=== PATIENT | female | born 1980 | race Caucasian/White ===

== ENCOUNTER 2019-11-24 07:34 | Day surgery (SDC) | payer OTHER ==
[~2019-11-24 07:34] MED LIST: ACET500T68 PO; BUPIVACAINE-EPI 0.25%-1:200000 MPF 30 ML VIAL. INJ ONE; EREN70AU2 SQ; FERR-36 PO; HYDROmorphone 2 MG/ML VIAL IV PRN; IBUP-1027 PO; LEVO25TA4 PO; LIDOCAINE 1% PF 2 ML VIAL. ID PRN; LORA-434 PO; LORA10TA68 PO; MORPHINE SULFATE 2 MG/ML VIAL. IV PRN; ONDANSETRON PF 4 MG/2 ML VIAL. IV PRN; PROC10TA57 PO; TIZA4TAB2 PO; ZOLP10TA PO; fentaNYL PF VIAL 100 MCG/2 ML VIAL IV PRN
[2019-11-24] MEDS: IV RINGERS,LACTATED 1000ML 1,000 ML IV SCH ×2 (08:19→12:04)
[2019-11-24] MEDS ORDERED: MIDAZOLAM HCL/PF 2 MG/2 ML VIAL. ONE (09:00)
[2019-11-24] MEDS ORDERED: LIDOCAINE 2% PF 5 ML VIAL. ONE (09:00)
[2019-11-24] MEDS ORDERED: fentaNYL PF VIAL 100 MCG/2 ML VIAL ONE ×2 (09:00→11:58)
[2019-11-24] MEDS ORDERED: PROPOFOL 10 MG/ML (20ML) VIAL. IV ONE (09:00)
[2019-11-24] MEDS ORDERED: DEXAMETHASONE SOD PHOS 4 MG/ML VIAL ONE ×2 (09:00→10:44)
[2019-11-24] MEDS ORDERED: ROCURONIUM 50 MG/5 ML VIAL. ONE (09:00)
[2019-11-24] MEDS ORDERED: ONDANSETRON PF 4 MG/2 ML VIAL. ONE (09:00)
[2019-11-24] MEDS ORDERED: SUCCINYLCHOLINE 200 MG/10 ML VIAL. ONE (09:00)
[2019-11-24] MEDS ORDERED: FAMOTIDINE 20 MG/2 ML VIAL ONE (09:00)
[2019-11-24] MEDS ORDERED: SCOPOLAMINE 1.5MG PATCH. TD SCH (09:30)
[2019-11-24] MEDS ORDERED: SURGICEL HEMOSTAT 4X8 EACH. ONE (10:29)
[2019-11-24] MEDS ORDERED: diphenhydrAMINE 50 MG/ML VIAL ONE (10:44)
[2019-11-24] MEDS ORDERED: KETOROLAC 30 MG/ML VIAL. ONE (11:05)
[2019-11-24] MEDS ORDERED: NEOSTIGMINE METHYLSULFATE 5 MG/5 ML SYRINGE. ONE (11:06)
[2019-11-24] MEDS ORDERED: GLYCOPYRROLATE 1 MG/5 ML VIAL. ONE (11:06)
[2019-11-24] MEDS ORDERED: SEVOFLURANE 61 TO 120 MINUTES. IH ONE (11:47)
[2019-11-24] MEDS ORDERED: SEVOFLURANE 31 TO 60 MINUTES. IH ONE (11:48)
--- NOTE | 2019-11-24 11:52 | PDOC ---
BRIEF OPERATIVE NOTE Date: Nov 24, 2019 Pre-Op Diagnosis Sterilization Post-Op Diagnosis SAme Procedure Performed LPSC BTL and Lysis of adhesions Surgeon Dr. Davis Piano Regulator Inspector Telecom Specialist: Jonel Anesthesia Type: General Blood Loss 5 ml Specimens Obtained stacey. fallopian tubes and foreign body 1 cm stone Findings nml size uterus, nml fallopian tubes and ovaries stacey., adhesions of uterus to abd wall and omentum to abd wall, foreign body 1 cm stone Complications none Operative Note see dictation JEAN CLAUDE DAVIS Jr, MD Nov 24, 2019 11:52
--- NOTE | 2019-11-24 11:54 | DISCH ---
DISCHARGE INSTRUCTIONS Condition on Discharge Condition on Discharge: Stable Activity After Discharge Activity Instructions for Disc: Activity as tolerated Lifting Instructions after Dis: No heavy lifting Driving Instructions after Dis: Do not drive today Diet after Discharge Diet after Discharge: Regular Contacting the DRGelacio after DC Call your doctor for: Concerns you may have Follow-Up Follow up with: Dr. Davis in 1 week JEAN CLAUDE DAVIS Jr, MD Nov 24, 2019 11:54
[2019-11-24] MEDS: fentaNYL PF VIAL 100 MCG/2 ML VIAL IV PRN ×2 (12:05→13:23)
--- NOTE | 2019-11-24 12:05 | OP ---
DATE OF SURGERY: PREOPERATIVE DIAGNOSIS: Sterilization. POSTOPERATIVE DIAGNOSIS: Sterilization. PROCEDURE: Laparoscopic bilateral tubal ligation via bilateral salpingectomy and lysis of adhesions. SURGEON: Jean Claude Davis MD. UNDERWATER PHOTOGRAPHER: Jonel. ANESTHESIA: GETA. ESTIMATED BLOOD LOSS: 5 mL. COMPLICATIONS: None. FINDINGS: Normal size uterus, normal fallopian tubes and ovaries bilaterally, adhesions of the uterus to abdominal wall as well as the omentum to abdominal wall, foreign body of 1 cm stone. SUMMARY: A 39-year-old female who desired permanent sterilization. She was counseled on risks, benefits and expectations as well as failure rate and voiced clear understanding to proceed. DESCRIPTION OF PROCEDURE: The patient was taken to surgery suite and placed in dorsal lithotomy position. She was prepped with Betadine solution for vaginal prep and ChloraPrep for abdominal prep. After adequate anesthesia, bivalve speculum was placed vaginally and anterior lip of the cervix was grasped with single tooth tenaculum. The uterine acorn manipulator was then placed. The bivalve speculum was removed. Attention was now placed on abdomen. Small transverse skin incision was made just below the umbilicus with a scalpel. The Veress needle was then placed through the infraumbilical incision site. The abdomen was allowed to insufflate up to 1-1/2 liters CO2 gas. The Veress needle was then removed, 5 mm trocar was placed, the scope was positioned. There were multiple abdominal wall adhesions of the omentum as well as the anterior wall of the uterus and fundus of the uterus. The fallopian tubes and ovaries appeared normal bilaterally. Two additional incisions made in the left lower quadrant of 5 mm port and 8 mm port. With aid of the [place] retractors and EnSeal device, the left fallopian tube was coagulated and dissected and removed from the left adnexa. The same process took place with the right fallopian tube. The areas were hemostatic. There was a 1 cm foreign body stone that was in the area of the bladder that was free floating and not attached to any organ or pelvic sidewall. An 8 mm port was replaced with a 10 mm port in which the Endobag was positioned and the foreign body stone was removed. Due to dense adhesions of the uterus to the abdominal wall and omentum, these were removed with the aid of the EnSeal device. Suction irrigation was utilized to verify good hemostasis. A small amount of normal saline was left in posterior cul-de-sac. The trocars were then removed under direct visualization. The abdomen was allowed to deflate as much as possible along with mechanical manipulation. The 10 mm port was closed at the fascia level using 2-0 Vicryl suture in a [id number] manner. The 3 skin incisions were closed at the skin level using 4-0 Vicryl suture in subcuticular manner. A 0.25% Marcaine with epinephrine was injected at each incision site. Uterine acorn manipulator and single tooth tenaculum were removed. The patient tolerated the procedure well and was taken to recovery room in stable condition. Sponge and needle count correct x 3. JEAN CLAUDE DAVIS MD DR: KYARA/rhonda JOB#: [id number] / [id number]
[2019-11-24] MEDS ORDERED: PROCHLORPERAZINE 10 MG/2 ML VIAL. ONE (12:13)
[2019-11-24] MEDS: PROCHLORPERAZINE 10 MG/2 ML VIAL. IV PRN ×2 (12:16→13:23)
[2019-11-24] MEDS ORDERED: OXYC-325 PO (12:37)
[2019-11-24] MEDS ORDERED: oxyCODONE/APAP 5/325 1 TAB TABLET PO ONE ×2 (12:45)
[2019-11-24 13:20] VITALS: BP 115/74
== END 2019-11-24 14:09 | disposition home or self-care (01) ==
LOC: SURG 07:34
PROVIDERS: ATTEND Obstetrics & Gynecology
DX: Z30.2 Encounter for sterilization (principal); T18.2XXA Foreign body in stomach, initial encounter; K66.0 Peritoneal adhesions (postprocedural) (postinfection); Z20.828 Contact with and (suspected) exposure to other viral communicable diseases; X58.XXXA Exposure to other specified factors, initial encounter; Y93.89 Activity, other specified; Y92.89 Other specified places as the place of occurrence of the external cause; Y99.8 Other external cause status; Z88.8 Allergy status to other drugs, medicaments and biological substances; Z87.891 Personal history of nicotine dependence; Z79.899 Other long term (current) drug therapy
CPT/HCPCS: 81025; 87426; A7015; J0330; J0780; J1100; J1200; J1885; J2250; J2405; J2704; J2710; J3010; J3490; J7030; J7120; C9803-CS; U0003-CS

== ENCOUNTER 2020-07-26 07:38 | Day surgery (SDC) | payer OTHER ==
[~2020-07-26] VITALS: Ht 162.6 cm; Wt 89.0 kg
[~2020-07-26 07:38] MED LIST changes: -BUPIVACAINE-EPI 0.25%-1:200000 MPF 30 ML VIAL. INJ ONE; -HYDROmorphone 2 MG/ML VIAL IV PRN; +HYDROmorphone 2 MG/ML VIAL IVP PRN; +IV RINGERS,LACTATED 1000ML 1,000 ML IV SCH; -LIDOCAINE 1% PF 2 ML VIAL. ID PRN; -MORPHINE SULFATE 2 MG/ML VIAL. IV PRN; +MORPHINE SULFATE 2 MG/ML VIAL. IVP PRN; -ONDANSETRON PF 4 MG/2 ML VIAL. IV PRN; +OXYC-325 PO; +PROCHLORPERAZINE 10 MG/2 ML VIAL. IVP PRN; -fentaNYL PF VIAL 100 MCG/2 ML VIAL IV PRN; +fentaNYL PF VIAL 100 MCG/2 ML VIAL IVP PRN
[2020-07-26 08:12] VITALS: BP 117/74
[2020-07-26] MEDS ORDERED: SCOPOLAMINE 1.5MG PATCH. TD ONE (08:30)
[2020-07-26] MEDS ORDERED: fentaNYL PF VIAL 100 MCG/2 ML VIAL ONE ×2 (09:05→10:03)
[2020-07-26] MEDS ORDERED: KETOROLAC 30 MG/ML VIAL. ONE (09:06)
[2020-07-26] MEDS ORDERED: LIDOCAINE 2% PF 5 ML VIAL. ONE (09:06)
[2020-07-26] MEDS ORDERED: PROPOFOL 10 MG/ML (20ML) VIAL. IV ONE (09:06)
[2020-07-26] MEDS ORDERED: FAMOTIDINE 20 MG/2 ML VIAL ONE (09:06)
[2020-07-26] MEDS ORDERED: ONDANSETRON PF 4 MG/2 ML VIAL. ONE (09:06)
[2020-07-26] MEDS ORDERED: SEVOFLURANE 16 TO 30 MINUTES. IH ONE (09:06)
[2020-07-26] MEDS ORDERED: SUCCINYLCHOLINE 200 MG/10 ML VIAL. ONE (09:06)
[2020-07-26] MEDS ORDERED: DEXAMETHASONE SOD PHOS 4 MG/ML VIAL ONE (09:24)
--- NOTE | 2020-07-26 09:43 | PDOC ---
BRIEF OPERATIVE NOTE Date: Jul 26, 2020 Pre-Op Diagnosis Menorrhagia Post-Op Diagnosis Same Procedure Performed Endometrial Ablation Surgeon Dr. Davis Anesthesia Type: General Blood Loss 5 ml Specimens Obtained none Findings enlarged uterus Complications none Operative Note see dictation JEAN CLAUDE DAVIS Jr, MD Jul 26, 2020 09:43
--- NOTE | 2020-07-26 09:44 | DISCH ---
DISCHARGE INSTRUCTIONS Condition on Discharge Condition on Discharge: Stable Activity After Discharge Activity Instructions for Disc: Activity as tolerated Lifting Instructions after Dis: No heavy lifting Driving Instructions after Dis: Do not drive today Diet after Discharge Diet after Discharge: Regular Contacting the DRGelacio after DC Call your doctor for: Concerns you may have Follow-Up Follow up with: Dr. Davis in 1 week JEAN CLAUDE DAVIS Jr, MD Jul 26, 2020 09:44
[2020-07-26] MEDS ORDERED: PROCHLORPERAZINE 10 MG/2 ML VIAL. ONE (09:57)
--- NOTE | 2020-07-26 10:04 | OP ---
DATE OF SURGERY: 07/26/2020 PREOPERATIVE DIAGNOSIS: Menorrhagia. POSTOPERATIVE DIAGNOSIS: Menorrhagia. PROCEDURE: Endometrial ablation. SURGEON: Forrest Davis MD ANESTHESIA: GETA. ESTIMATED BLOOD LOSS: 5 mL COMPLICATIONS: None. FINDINGS: Enlarged uterus. SUMMARY: A 40-year-old female with long history of menorrhagia, requiring endometrial ablation. She was counseled on the risks, benefits and expectations and voiced clear understanding to proceed. DESCRIPTION OF PROCEDURE: The patient was taken to the surgery suite and placed in dorsal lithotomy position. She was prepped with Betadine solution and draped in a sterile fashion. After adequate anesthesia, weighted speculum and curved Mia were placed vaginally. Anterior lip of cervix grasped with single tooth tenaculum. Uterus was sounded to 12 cm in length. The NovaSure device was set at 6.5+ cm for length and 3 cm for width. The NovaSure device went through a full cycle for 90-second interval. The NovaSure device was then removed. Single tooth tenaculum and weighted speculum were removed. The patient was taken to the PACU in stable condition. Sponge and instrument count correct x 3. KYARA/ALONSO DR: Abelino TID: [id number]
[2020-07-26] MEDS ORDERED: IBUP-1060 PO (10:08)
[2020-07-26] MEDS ORDERED: IBUPROFEN 400 MG TABLET. PO ONE (10:15)
[2020-07-26 10:40] VITALS: BP 120/68
== END 2020-07-26 11:00 | disposition home or self-care (01) ==
LOC: SURG 07:38
PROVIDERS: ATTEND Obstetrics & Gynecology
DX: N92.0 Excessive and frequent menstruation with regular cycle (principal); N85.2 Hypertrophy of uterus; E11.9 Type 2 diabetes mellitus without complications; E03.9 Hypothyroidism, unspecified; F41.9 Anxiety disorder, unspecified; F32.9 Major depressive disorder, single episode, unspecified; Z90.49 Acquired absence of other specified parts of digestive tract; Z98.51 Tubal ligation status; Z98.890 Other specified postprocedural states; Z79.899 Other long term (current) drug therapy; Z87.891 Personal history of nicotine dependence; Z88.8 Allergy status to other drugs, medicaments and biological substances
CPT/HCPCS: 58353; 81025; A4930; J0330; J0690; J0780; J1100; J1885; J2405; J2704; J3010; J3490

== ENCOUNTER 2021-01-14 11:06 | Day surgery (SDC) | payer OTHER ==
[~2021-01-14] VITALS: Ht 160 cm; Wt 89.0 kg
[~2021-01-14 11:06] MED LIST changes: +IBUP-1060 PO; +MORPHINE SULFATE 2 MG/ML INJ. IVP PRN; -MORPHINE SULFATE 2 MG/ML VIAL. IVP PRN; +TIZA-75 PO; -TIZA4TAB2 PO
[2021-01-14 11:37] VITALS: BP 122/86
[2021-01-14] MEDS ORDERED: DEXAMETHASONE SOD PHOS 4 MG/ML VIAL ONE (12:31)
[2021-01-14] MEDS ORDERED: MIDAZOLAM HCL/PF 2 MG/2 ML VIAL. ONE (12:31)
[2021-01-14] MEDS ORDERED: LIDOCAINE 2% PF 5 ML VIAL. ONE (12:31)
[2021-01-14] MEDS ORDERED: ONDANSETRON PF 4 MG/2 ML VIAL. ONE (12:31)
[2021-01-14] MEDS ORDERED: PROPOFOL 10 MG/ML (20ML) VIAL. IV ONE (12:31)
[2021-01-14] MEDS ORDERED: fentaNYL PF VIAL 100 MCG/2 ML VIAL ONE ×2 (12:31→17:31)
[2021-01-14] MEDS ORDERED: EPINEPHrine VIAL 30 MG/30 ML VIAL ONE (13:15)
[2021-01-14] MEDS ORDERED: KETAMINE HCL IN NACL, ISO-OSM 50 MG/5 ML SYRINGE ONE (13:17)
[2021-01-14] MEDS ORDERED: HYDROmorphone 2 MG/ML VIAL ONE (13:47)
[2021-01-14] MEDS ORDERED: ePHEDrine PF IN SALINE 50 MG/10 ML SYRINGE. IV ONE (15:27)
[2021-01-14] MEDS ORDERED: PHENYLEPHRINE in 0.9% NACL PF 1 MG/10 ML SYRINGE. IV ONE (15:27)
[2021-01-14] MEDS ORDERED: BACITRACIN TOPICAL OINT PACKET. TP ONE (16:24)
[2021-01-14] MEDS ORDERED: ALBUTEROL SULFATE 2.5 MG/3 ML NEBU. ONE (17:13)
[2021-01-14] MEDS ORDERED: ALBUTEROL SULFATE 8GM INHALER. INH ONE (17:14)
[2021-01-14] MEDS ORDERED: PROCHLORPERAZINE 10 MG/2 ML VIAL. ONE (17:31)
--- NOTE | 2021-01-14 17:31 | PDOC4 ---
OPERATIVE NOTE Date: Date: Jan 14, 2021 Pre-Op Diagnosis: Symptomatic macromastia Post-Op Diagnosis: Same Procedure Performed: Bilateral breast reduction, CPT 8349205. Incision 13:27-16:50 Surgeon: Queta Bowers MD Anesthesia Type: General endotracheal anesthesia Blood Loss: 100 mL Specimans Obtained: Right breast tissue: 622g Left breast tissue: 723g Findings: See op note Complications: None Operative Note: Indications: This is an 40-year-old female with symptomatic macromastia refractory to conservative measures. Therefore she presents today for bilateral breast reduction. She is felt to be a good candidate for the procedure. The procedure and risks have been described in detail including the risk of bleeding, infection, scarring, wounds, delayed wound healing, loss of nipple sensation or incisional sensation, partial or complete loss of the nipple, asymmetry, need for revision procedures. The patient understood the risks and desire to proceed. Procedure The patient was marked in the preoperative holding area. Breast measurements were obtained and included the sternal notch to nipple distance, nipple to IMF distance at rest and on stretch, and the base diameter of the breast. The sternal midline, breast meridian, and inframammary folds were marked bilaterally. The new position of the nipple areolar complex was marked correlating to the inframammary fold along the breast meridian. An inverted T pattern skin excision was drawn. A planned superior medial pedicle was marked as well. The patient was then transported to the operating room and placed on the OR table in the supine position. SCDs were applied to both lower extremities and working prior to the induction of general anesthesia. IV antibiotics were administered. A timeout was completed verifying the correct patient and correct procedure. The chest was prepped with ChloraPrep and draped in the usual ster ile fashion. For each side the procedure proceeded as follows: The markings were redelineated. The nipple areolar complex was inscribed with a 42 mm nipple sizer. A #15 scalpel was used to incise the skin around the nipple areolar complex. The superior medial pedicle was also incised. The pedicle was then de-epithelialized and the remaining incisions were created. The pedicle was then created to a depth of approximately 3.5 cm, ensuring that the blood supply to the pedicle was maintained. The inferior medial and lateral wedge tissues were excised and the superior pocket was deepened towards the clavicle. Ralph were used to tailor tack the skin. The patient was then sat up to 75 degrees and symmetry was assessed. The patient returned to the supine position and contouring was performed manually as liposuction was not available. Once satisfactory contour had been achieved, the new nipple areolar complex location was marked approximately 5 cm above the IMF. A 38 mm nipple sizer was used to inscribe the skin at the new nipple areolar complex location. A #15 scalpel was used to incise the skin. The superior medial pedicle was then rotated superiorly into place. 3-0 PDS and 4-0 PDS were used to approximate the deep dermis of the nipple areolar complex and the infra-areolar incision. 2-0 PDS was used to approximate the T-junction. 20 Quill Lares Derm was then used to ru n the deep dermis along the inframammary fold. The skin was then run with 4-0 Monocryl. Bacitracin and Xeroform were used to dress the nipple areolar complexes. Half inch Steri-Strips were used along the incisions. A soft dressing and bra were placed. The patient tolerated the procedure well and was taken to the PACU in stable condition. All instrument and needle counts were correct at the end of the procedure. There were no immediate complications. QUETA BOWERS MD Jan 14, 2021 17:31
[2021-01-14] MEDS ORDERED: OXYC-325 PO (17:41)
[2021-01-14] MEDS ORDERED: CEPH500T PO (17:41)
[2021-01-14] MEDS ORDERED: ACET500T68 PO (17:41)
[2021-01-14] MEDS ORDERED: CHLO118L2 TP (17:41)
[2021-01-14] MEDS ORDERED: MEPERIDINE PF 25 MG/ML VIAL. IV PRN (17:45)
[2021-01-14] MEDS ORDERED: oxyCODONE/APAP 5/325 1 TAB TABLET PO ONE ×2 (18:00)
[2021-01-14] MEDS ORDERED: IV RINGERS,LACTATED 1000ML 1,000 ML IV SCH (18:45)
[2021-01-14 19:10] VITALS: BP 112/66
== END 2021-01-14 19:16 | disposition home or self-care (01) ==
LOC: SURG 11:06
PROVIDERS: ATTEND Plastic Surgery
DX: N62 Hypertrophy of breast (principal); R92.8 Other abnormal and inconclusive findings on diagnostic imaging of breast; E03.9 Hypothyroidism, unspecified; E11.9 Type 2 diabetes mellitus without complications; F41.9 Anxiety disorder, unspecified; F32.9 Major depressive disorder, single episode, unspecified; Z90.49 Acquired absence of other specified parts of digestive tract; Z98.51 Tubal ligation status; Z98.890 Other specified postprocedural states; Z79.899 Other long term (current) drug therapy; Z87.891 Personal history of nicotine dependence; Z88.8 Allergy status to other drugs, medicaments and biological substances
CPT/HCPCS: 19318; 81025; A4209; A4213; A4314; A4364; A4930; A6223; A6253; J0171; J0690; J0780; J1100; J1170; J2250; J2370; J2405; J2704; J3010; J7613; A4452